=== PATIENT | female | born 1985 | race Caucasian/White ===

== ENCOUNTER → 2016-08-31 | Outpatient (CLI) | payer OTHER | END | disposition home or self-care (01) | LOC: CVU 08:14 | PROVIDERS: ATTEND Internal Medicine | DX: I51.7 Cardiomegaly (principal); I34.0 Nonrheumatic mitral (valve) insufficiency; I37.1 Nonrheumatic pulmonary valve insufficiency | CPT/HCPCS: 93017; 93306 ==

== ENCOUNTER → 2016-12-27 | Outpatient (CLI) | payer OTHER | END | disposition home or self-care (01) | LOC: CYBERKNIFE 11:22 | PROVIDERS: ATTEND Neurological Surgery | DX: Z02.9 Encounter for administrative examinations, unspecified (principal) ==

== ENCOUNTER → 2017-01-12 | Outpatient (CLI) | payer OTHER ==
[~2017-01-12] MED LIST: ASPI-496 PO; GADOBUTROL 10 MMOL/10 ML VIAL ONE
== END | disposition home or self-care (01) ==
LOC: CFH 14:48
PROVIDERS: ATTEND Neurological Surgery
DX: D35.2 Benign neoplasm of pituitary gland (principal)
CPT/HCPCS: 70553; A9585

== ENCOUNTER 2017-02-05 15:33 | Emergency (ER) | payer OTHER ==
[~2017-02-05] VITALS: Ht 160 cm; Wt 100.0 kg
[2017-02-05] MEDS ORDERED: ASPI-496 PO (15:53)
[2017-02-05] MEDS ORDERED: MECLIZINE CHEWABLE 25 MG TAB ONE (16:13)
[2017-02-05] MEDS: MECLIZINE CHEWABLE 25 MG TAB PO ONE ×2 (16:30→16:38)
[2017-02-05] MEDS ORDERED: SODIUM CHLORIDE FLUSH 10ML SYR IVF ONE (16:30)
[2017-02-05 16:53] LABS: HEMATOCRIT 46.2 % (34.6-47.8); HEMOGLOBIN 15.9 g/dL (11.7-16.4); WHITE BLOOD COUNT 5.1 x10^3/uL (3.4-10)
[2017-02-05 17:05] LABS: BLOOD UREA NITROGEN 16 mg/dL (7-18)
[2017-02-05 17:31] VITALS: BP 119/74
== END 2017-02-05 17:45 | disposition home or self-care (01) ==
LOC: ED 17:30
DX: H81.399 Other peripheral vertigo, unspecified ear (principal); H81.10 Benign paroxysmal vertigo, unspecified ear; R20.2 Paresthesia of skin
CPT/HCPCS: 36415; 70551; 80048; 82040; 85025; 93005; 99285

== ENCOUNTER 2017-04-17 11:16 | Emergency (ER) | payer OTHER ==
[~2017-04-17] VITALS: Ht 160 cm; Wt 95.0 kg
[~2017-04-17 11:16] MED LIST changes: -GADOBUTROL 10 MMOL/10 ML VIAL ONE
[2017-04-17 11:58] LABS: HEMATOCRIT 42.9 % (34.6-47.8); HEMOGLOBIN 14.7 g/dL (11.7-16.4); WHITE BLOOD COUNT 4.9 x10^3/uL (3.4-10)
[2017-04-17] MEDS ORDERED: SODIUM CHLORIDE FLUSH 10ML SYR IVF ONE (12:00)
[2017-04-17] MEDS ORDERED: NITROGLYCERIN SINGLE TAB 0.4 MG SL PRN (12:00)
[2017-04-17 12:07] LABS: ASPARTATE AMINO TRANSFERASE 24 U/L (15-37); BLOOD UREA NITROGEN 12 mg/dL (7-18)
[2017-04-17 12:12] LABS: IS PT STATUS REG ER OR PRE ER? YES
[2017-04-17] MEDS ORDERED: ACETAMINOPHEN 325 MG TABLET PO ONE (13:30)
[2017-04-17] MEDS ORDERED: ACETAMINOPHEN 325 MG TABLET ONE (13:40)
[2017-04-17 14:45] LABS: IS PT STATUS REG ER OR PRE ER? YES
[2017-04-17 15:26] VITALS: BP 108/74
== END 2017-04-17 15:36 | disposition home or self-care (01) ==
LOC: ED 14:25
DX: R07.89 Other chest pain (principal); Z86.73 Personal history of transient ischemic attack (TIA), and cerebral infarction without residual deficits; Z88.0 Allergy status to penicillin; Z87.891 Personal history of nicotine dependence; Z88.6 Allergy status to analgesic agent; Z79.82 Long term (current) use of aspirin
CPT/HCPCS: 36415; 71010; 80053; 84484; 85025; 85610; 85730; 93005; 99285

== ENCOUNTER 2019-07-01 06:22 | Outpatient (CLI) | payer MEDICAID | END 2019-07-01 23:59 | disposition home or self-care (01) | LOC: CVU 06:22 | PROVIDERS: ATTEND Registered Nurse | DX: R07.9 Chest pain, unspecified (principal); I63.9 Cerebral infarction, unspecified; Z82.49 Family history of ischemic heart disease and other diseases of the circulatory system | CPT/HCPCS: 93306; 93356 ==